=== PATIENT | male | born 1945 | race Two or more races ===

== ENCOUNTER 2017-04-02 16:17 | Emergency (ER) | payer MEDICARE, MEDICAID ==
[~2017-04-02] VITALS: Ht 167.6 cm; Wt 74.8 kg
--- NOTE | 2017-04-02 16:17 | NUR ---
[facility] FROM [facility] FOR [facility] THIS AM, LEFT HEMATOMA NOTED ON LEFT EYE BROW. RR EVEN AND UNLABORED. VSS. PENDING MD SHORT.
[2017-04-02 17:27] LABS: BASOPHILS % (AUTO) 0.4 % (0.0-2.0); EOSINOPHILS % (AUTO) 0.4 % (0.0-6.0); HEMATOCRIT 41 % (39-51); HEMOGLOBIN 13.5 g/dL (13.5-17.5); LYMPHOCYTES # (AUTO) 0.5 /CMM (0.8-4.8); LYMPHOCYTES % (AUTO) 11.4 % (20.0-44.0); MEAN CORPUSCULAR HEMOGLOBIN 31 PG (26.0-33.0); MEAN CORPUSCULAR HGB CONC 33 g/dl (31.0-36.0); MEAN CORPUSCULAR VOLUME 93 fL (80-96); MONOCYTES # (AUTO) 0.7 /CMM (0.1-1.30); MONOCYTES % (AUTO) 13.6 % (2.0-12.0); NEUTROPHILS # (AUTO) 3.6 /CMM (1.8-8.9); NEUTROPHILS % (AUTO) 74.2 % (43.0-81.0); PLATELET COUNT (AUTO) 225 /CMM (150-450); RDW COEFFICIENT OF VARIATION 16.2 (11.5-15.0); RED BLOOD CELL COUNT(AUTO) 4.43 MIL/uL (4.5-6.0); WHITE BLOOD COUNT (AUTO) 4.8 K/uL (4.3-11.0)
[2017-04-02 17:37] LABS: CALCIUM, SERUM 8.6 mg/dL (8.5-10.1); CREATININE 0.8 mg/dL (0.6-1.3); POTASSIUM 3.6 mmol/L (3.5-5.1)
[2017-04-02 17:42] LABS: INR 0.89 (0.87-1.13); PROTHROMBIN TIME 9.1 SECS (9.5-12.7)
--- NOTE | 2017-04-02 17:50 | NUR ---
PT BACK FROM CT SCAN
--- NOTE | 2017-04-02 19:16 | NUR ---
CALLED [facility] FOR BLS TRANSPORT. ETA 1 HOUR
--- NOTE | 2017-04-02 20:37 | NUR ---
IV removed. Catheter intact and site benign. Pressure and 4x4 applied to site. No bleeding noted. Patient discharged to [facility] in stable condition. Written and verbal after care instructions given. Patient verbalizes understanding of instruction. VSS. Report given to ems for transport. No further complaints.
[2017-04-02 20:41] VITALS: BP 128/72
== END 2017-04-02 20:42 ==
LOC: ER 16:19
DX: S00.12XA Contusion of left eyelid and periocular area, initial encounter (principal); G93.89 Other specified disorders of brain; I10 Essential (primary) hypertension; K21.9 Gastro-esophageal reflux disease without esophagitis; Z79.01 Long term (current) use of anticoagulants; Z92.21 Personal history of antineoplastic chemotherapy; W01.0XXA Fall on same level from slipping, tripping and stumbling without subsequent striking against object, initial encounter; Y92.89 Other specified places as the place of occurrence of the external cause; Y93.89 Activity, other specified; Y99.8 Other external cause status; Z88.5 Allergy status to narcotic agent
CPT/HCPCS: 36415; 70450-TC; 70486-TC; 80048-TC; 85025-TC; 85730-TC; A4606; Z7610